=== PATIENT | female | born 1950 | race Caucasian/White ===

== ENCOUNTER 2019-08-22 10:44 | Outpatient (CLI) | payer MEDICARE, SELFPAY ==
--- NOTE | 2019-08-22 10:57 | XR_ITS ---
WS: [id number] LUMBAR SPINE TECHNIQUE: 3 views of the lumbar spine CLINICAL INFORMATION: BACK PAIN, LUMBAR WITH RADICULOPATHY COMPARISON: None. FINDINGS: Mild lumbar curve convex right. Osteopenia. Five [id number]-[id number]-[id number] lumbar vertebral bodies. Disc space narrowing worse at L4-5 with endplate sclero sis. Moderate facet arthropathy L5-S1. Trace anterolisthesis L5 on S1 measuring 3.4 mm. Suggestion of bilateral spondylolysis. Bony foraminal narrowing L5-S1. No acute appearing compression fractures. XR/XR lumbar spine 2-3V* [id number] IMPRESSION: 1. Mild lumbar curve convex right. 2. Disc space narrowing worse at L4-5 with loss of disc space height and endpl ate sclerosis. 3. Moderate facet arthropathy L5-S1 with bony foraminal narrowing and anteroli sthesis measuring 3.4 mm. Suggestion of L5 spondylolysis.
== END 2019-08-22 10:45 | disposition home or self-care (01) ==
LOC: RADWPI 10:52
PROVIDERS: Family Provider Electrodiagnostic Medicine; PCP Electrodiagnostic Medicine; Visit Provider Electrodiagnostic Medicine
DX: M54.9 Dorsalgia, unspecified (principal); M54.16 Radiculopathy, lumbar region; M47.817 Spondylosis without myelopathy or radiculopathy, lumbosacral region
CPT/HCPCS: 72100

== ENCOUNTER 2019-09-03 10:37 | Outpatient (CLI) | payer MEDICARE, SELFPAY ==
--- NOTE | 2019-09-03 10:43 | MR_ITS ---
WS: [id number] MRI LUMBAR SPINE NONCONTRAST HISTORY: Neuropathy, lumbar BACK PAIN W/RADICULOPATHY/ACUTE LOW BACK P COMPARISON: None available. TECHNIQUE: Sagittal and axial multisequence imaging is submitted. Mild straightening of the normal lumbar lordosis. Moderate to severe disc space narrowing at L4-5. No marrow edema or fracture. Conus terminates normally at L1. Mild enlargement of the liver. L1-L2: Mild facet disease and ligamentum flavum hypertrophy. No stenosis. L2-L3: Diffuse annular disc bulging with moderate ligamentum flavum and facet arthritis. Increase flu id in the facet joints. Mild central and subarticular recess stenosis. L3-L4: Diffuse annular disc bulging with a moderate central disc protrusion. There is marked ligament um flavum hypertrophy and facet arthritis. Fluid in the facet joints. There is an osteophyte encroach ing into the central thecal sac from the RIGHT facet joint. Central to RIGHT paracentral and subartic ular disc osteophyte complex. Combination of findings is causing significant central and RIGHT subart icular recess stenosis. L4-L5: Mild annular disc bulging and facet arthritis. Mild bilateral foraminal narrowing. L5-S1: No stenosis. Nerve roots are becoming clumped within the thecal sac below the L3-4 disc level. 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 Retroperitoneal well-rounded nodule measures 2.3 cm is probably an aortocaval lymph node. May be a cy stic nodule as it is very high signal on the T2 sequence. MR/MR lumbar spine wo con* [id number] IMPRESSION: 1. Severe central, RIGHT subarticular recess and proximal foraminal stenosis a t L3-4 due to combination of disc disease, osteophytes, facet arthritis and lig amentum flavum disease. Significant deformity upon the thecal sac, greatest inv olving the RIGHT thecal sac and foramen. Marked encroachment upon the RIGHT L4 nerve root. 2. Nerve roots below the L3-4 disc are becoming clumped within the thecal sac. 3. Mild bilateral foraminal narrowing at L4-5. 4. Mild central and subarticular recess stenosis at L2-3. 5. 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 Cystic lymph nodes or lymphangioma within the differential. Recommend follow-up CT abdomen and pelvis with IV and oral contrast.
== END 2019-09-03 10:38 | disposition home or self-care (01) ==
LOC: RADSHAW 10:42
PROVIDERS: PCP Electrodiagnostic Medicine; Visit Provider Electrodiagnostic Medicine
DX: G62.9 Polyneuropathy, unspecified (principal); M54.16 Radiculopathy, lumbar region; M54.5 Low back pain; M48.061 Spinal stenosis, lumbar region without neurogenic claudication
CPT/HCPCS: 72148

== ENCOUNTER 2019-09-11 08:54 | Outpatient (CLI) | payer MEDICARE, SELFPAY ==
--- NOTE | 2019-09-11 09:15 | CT_ITS ---
WS: [id number] CT ABDOMEN AND PELVIS WITH CONTRAST HISTORY: NEOPLASM OF UNCERTAIN BEHAVIOR OF LUMBAR VERTEBRAL COLUMN TECHNIQUE: Imaging performed of the abdomen and pelvis with IV contrast. Single phase imaging of the abdomen. Coronal and sagittal reformats are submitted. All CT scans at [facility] use at least one of these dose optimization techniques: automated exposure control; mA and/or kV adjustment per patient size (includes targeted exams where dose is matched to clinical indication); or iterativ e reconstruction. IV CONTRAST: Visipaque 320; 95 mL IV. Oral contrast: Yes. DLP: 1156.01 mGycm COMPARISON: MRI lumbar spine 09/03/2019 Lower thorax: Lung bases are clear. Heart is normal size. Small hiatal hernia. Liver/biliary system: Mild diffuse hepatic steatosis with moderate enlargement of the liver. No mass or bile duct dilatation. Gallbladder: Normal. No gallstones or wall thickening. No pericholecystic fluid. Pancreas: Normal. Spleen: Normal spleen size with granulomata. Adrenal glands: Normal. Right kidney: Normal. Left kidney: Normal size kidney. 1.0 cm cyst from the anterior mid kidney. Aorta: Mild atherosclerosis. Lymphadenopathy: There is a well-circumscribed aortocaval cystic mass measuring 1.5 cm in the infra r enal location. This was seen on the recent MRI. With this well-circumscribed with smooth avalos and no enhancement of any significance. No additional masses are identified. Free fluid: None. GI tract: Unremarkable. Abdominal wall: Unremarkable abdominal wall. No hernia. Pelvis: Urinary bladder is moderately well distended. No free fluid. Uterus and ovaries are normal fo r age. Bones: Advanced degenerative disc disease at L4-5. CT/CT abdomen pelvis w con* [id number] IMPRESSION: 1. Well-circumscribed cystic mass in the aortocaval retroperitoneum measures 1 .5 cm. Favor benign etiology. No prior studies to confirm long-term stability. Favor lymphocele or lymphangioma as an etiology. Less likely cystic lymph node. Stability will need to be documented. Recommend follow-up CT abdomen and pelvi s in 3 months. 2. Moderate hepatic steatosis and hepatomegaly.
[2019-09-11] MEDS: iohexol 300 mg/mL 50 mL Btl PO (09:19)
[2019-09-11 11:28] LABS: Blood Urea Nitrogen 11 mg/dL (8-23)
[2019-09-11 11:29] LABS: Glomerular Filtration Rate 34.5 mL/min (90-130)
[2019-09-11] MEDS: iodixanol 320 mg/mL 100mL Btl IV (11:35)
== END 2019-09-11 08:55 | disposition home or self-care (01) ==
LOC: RADWPI 08:57
PROVIDERS: PCP Electrodiagnostic Medicine; Visit Provider Electrodiagnostic Medicine
DX: D48.0 Neoplasm of uncertain behavior of bone and articular cartilage (principal); K76.0 Fatty (change of) liver, not elsewhere classified; R16.0 Hepatomegaly, not elsewhere classified
CPT/HCPCS: 74177; 82565; 84520; Q9967

== ENCOUNTER 2020-01-15 09:19 | Outpatient (CLI) | payer MEDICARE, SELFPAY ==
[2020-01-15] MEDS: iohexol 300 mg/mL 50 mL Btl PO (09:26)
[2020-01-15 10:56] LABS: Blood Urea Nitrogen 12 mg/dL (8-23); Glomerular Filtration Rate 37.4 mL/min (90-130)
--- NOTE | 2020-01-15 11:00 | CT_ITS ---
WS: [id number] CT scan of the abdomen and pelvis with Oral and IV contrast. Additional two-dimensional coronal and s agittal reconstruction was performed. 01/15/2020 Clinical Data: lymphatic cyst and edema Comparison: CT abdomen and pelvis, 09/11/2019. DLP: 1115.[address] scans at [facility] use at least one of these dose optimization techniques: automat ed exposure control; mA and/or kV adjustment per patient size (includes targeted exams where dose is matched to clinical indication); or iterative reconstruction. Findings: The 1.5 cm cyst in the retroperitoneal region between the inferior vena cava and abdominal aorta seen best on axial image 28 of 92 has not changed in size or shape. Again this may represent a small lymp hocele or lymphatic cyst. The lower lungs show no nodules, masses or effusions. There is a small hiatal hernia. The gallbladder, spleen, adrenal glands and pancreas are normal. The liver shows fatty infiltration. The kidneys show equal bilateral contrast excretion with with a small left renal cortical cyst. No hy dronephrosis, masses, renal or ureteral calculi are seen.. The abdominal aorta is normal in size with minimal calcification in the wall.. No appendicitis or diverticulitis is seen. Oral contrast is in the stomach, small bowel and colon and there is no bowel dilatation. No abscess, adenopathy, ascites, mass, obstruction or free air is seen . The bladder is unremarkable. The uterus is normal. No inguinal hernia is seen. There is a posterior lumbar fusion at L3-L4. There is an artificial disc at L3-L4. Disc degeneration at L4-L5 is present. CT/CT abdomen pelvis w con* [id number] Impression: 1. Small lymphocele or lymphatic cyst seen best on axial image 28 and 92 and najera s not changed in size or configuration. 2. No additional CT abdomen scans are recommended.
[2020-01-15] MEDS: iodixanol 320 mg/mL 100mL Btl IV (11:07)
== END 2020-01-15 09:20 | disposition home or self-care (01) ==
LOC: RADWPI 09:23
PROVIDERS: PCP Electrodiagnostic Medicine; Visit Provider Surgery
DX: I89.0 Lymphedema, not elsewhere classified (principal); R60.0 Localized edema
CPT/HCPCS: 74177; 82565; 84520; Q9967

== ENCOUNTER 2021-04-21 15:26 | Outpatient (CLI) | payer MEDICARE, SELFPAY ==
--- NOTE | 2021-04-21 15:34 | MM_ITS ---
WS: [id number] BILATERAL DIGITAL SCREENING MAMMOGRAPHY WITH CAD CLINICAL INFORMATION: SCREENING HISTORY: Screening mammogram. No current complaints. COMPARISON: None. TECHNIQUE: Bilateral CC and MLO views. FINDINGS: Scattered fibroglandular densities bilaterally. Incidental punctate calcifications. Indeterminate clu stered calcifications central inner LEFT breast. Recommend spot magnification views in further evalua tion. RIGHT breast is unremarkable. MM/[place] [id number] IMPRESSION: BI-RADS: 0-Incomplete: Need additional imaging evaluation FOLLOW UP: Need Additional Imaging Recommend LEFT breast diagnostic mammography with spot magnification views of t he clustered calcifications.
== END 2021-04-21 15:27 | disposition home or self-care (01) ==
PROVIDERS: PCP Electrodiagnostic Medicine; Visit Provider Electrodiagnostic Medicine
DX: Z12.31 Encounter for screening mammogram for malignant neoplasm of breast (principal)
CPT/HCPCS: 77067

== ENCOUNTER 2021-05-12 13:43 | Outpatient (CLI) | payer MEDICARE, SELFPAY ==
--- NOTE | 2021-05-12 13:57 | MM_ITS ---
WS: [id number] LEFT DIGITAL MAMMOGRAPHY WITH CAD CLINICAL INFORMATION: CALCS COMPARISON: April 21, 2021 TECHNIQUE: 3 views of the left breast were obtained. FINDINGS: Scattered fibroglandular densities of the left breast. Spot magnification views inner quadrant LEFT b reast. Spot magnification views demonstrates cluster of calcifications unchanged in appearance. These are somewhat coarse but heterogeneous and nonspecific. Recommend further evaluation with stereotacti c guided biopsy. MM/[place] [id number] IMPRESSION: BI-RADS: 4-Suspicious Finding-Biopsy Should Be Considered FOLLOW UP: Stereotactic Biopsy Recommended
== END 2021-05-12 13:44 | disposition home or self-care (01) ==
PROVIDERS: PCP Electrodiagnostic Medicine; Visit Provider Electrodiagnostic Medicine
DX: R92.1 Mammographic calcification found on diagnostic imaging of breast (principal)
CPT/HCPCS: 77065

== ENCOUNTER 2021-07-01 13:59 | Outpatient (CLI) | payer MEDICARE, SELFPAY ==
--- NOTE | 2021-07-01 14:15 | MM_ITS ---
WS: [id number] STEREOTACTIC LEFT BREAST BIOPSY WITH VACUUM ASSISTANCE. History: Heterogeneous LEFT breast calcifications. Biopsy recommended for suspicious calcifications. Procedure, risks, and complications were discussed the patient who agreed to proceed. Prior imaging w as reviewed. Cluster of calcifications within the left breast are localized. Stereotactic imaging was performed. P atient was prepped and draped in usual sterile fashion. After 1% lidocaine, calcifications were targe monica stereotactically in the LEFT breast. Small incision was made. Needle advanced into the cluster of calcifications LEFT breast with imaging demonstrating appropriate position relative to the calcifica tions. Multiple vacuum-assisted core biopsies were obtained. Postprocedure imaging demonstrates calci fications within the biopsy specimen. The biopsy cavity was lavaged. Titanium clip was placed at the biopsy site. Postprocedure imaging dem onstrates clip in good position on the cc view and migrated inferior to the biopsy cavity on the ML v iew after compression release. No immediate complications. MM/[place] [id number] IMPRESSION: 1. Uncomplicated vacuum-assisted stereotactic biopsy of calcifications in the LEFT breast. Pathology: A. Breast, left, calcifications , stereotactic biopsy: - Benign breast tissue with focal usual ductal hyperplasia. - Florid microcalcifications identified. - No malignancy identified. Recommend 6 month diagnostic mammographic follow-up postbiopsy
--- NOTE | 2021-07-01 14:15 | MM_ITS ---
WS: [id number] STEREOTACTIC LEFT BREAST BIOPSY WITH VACUUM ASSISTANCE. History: Heterogeneous LEFT breast calcifications. Biopsy recommended for suspicious calcifications. Procedure, risks, and complications were discussed the patient who agreed to proceed. Prior imaging w as reviewed. Cluster of calcifications within the left breast are localized. Stereotactic imaging was performed. P atient was prepped and draped in usual sterile fashion. After 1% lidocaine, calcifications were targe monica stereotactically in the LEFT breast. Small incision was made. Needle advanced into the cluster of calcifications LEFT breast with imaging demonstrating appropriate position relative to the calcifica tions. Multiple vacuum-assisted core biopsies were obtained. Postprocedure imaging demonstrates calci fications within the biopsy specimen. The biopsy cavity was lavaged. Titanium clip was placed at the biopsy site. Postprocedure imaging dem onstrates clip in good position on the cc view and migrated inferior to the biopsy cavity on the ML v iew after compression release. No immediate complications. MM/MM surgical specimen LT IMPRESSION: 1. Uncomplicated vacuum-assisted stereotactic biopsy of calcifications in the LEFT breast. Pathology: A. Breast, left, calcifications , stereotactic biopsy: - Benign breast tissue with focal usual ductal hyperplasia. - Florid microcalcifications identified. - No malignancy identified. Recommend 6 month diagnostic mammographic follow-up postbiopsy
--- NOTE | 2021-07-01 14:15 | MM_ITS ---
WS: [id number] STEREOTACTIC LEFT BREAST BIOPSY WITH VACUUM ASSISTANCE. History: Heterogeneous LEFT breast calcifications. Biopsy recommended for suspicious calcifications. Procedure, risks, and complications were discussed the patient who agreed to proceed. Prior imaging w as reviewed. Cluster of calcifications within the left breast are localized. Stereotactic imaging was performed. P atient was prepped and draped in usual sterile fashion. After 1% lidocaine, calcifications were targe monica stereotactically in the LEFT breast. Small incision was made. Needle advanced into the cluster of calcifications LEFT breast with imaging demonstrating appropriate position relative to the calcifica tions. Multiple vacuum-assisted core biopsies were obtained. Postprocedure imaging demonstrates calci fications within the biopsy specimen. The biopsy cavity was lavaged. Titanium clip was placed at the biopsy site. Postprocedure imaging dem onstrates clip in good position on the cc view and migrated inferior to the biopsy cavity on the ML v iew after compression release. No immediate complications. MM/MM biopsy LT vac assist [id number] IMPRESSION: 1. Uncomplicated vacuum-assisted stereotactic biopsy of calcifications in the LEFT breast. Pathology: A. Breast, left, calcifications , stereotactic biopsy: - Benign breast tissue with focal usual ductal hyperplasia. - Florid microcalcifications identified. - No malignancy identified. Recommend 6 month diagnostic mammographic follow-up postbiopsy
[2021-07-01 15:01] LABS: INR 0.96 (0.8-1.2)
== END 2021-07-01 14:00 | disposition home or self-care (01) ==
PROVIDERS: PCP Electrodiagnostic Medicine; Visit Provider Electrodiagnostic Medicine
DX: R92.1 Mammographic calcification found on diagnostic imaging of breast (principal)
CPT/HCPCS: 19081; 77065; 85610; 88305

== ENCOUNTER 2022-06-11 07:29 | Outpatient (CLI) | payer MEDICARE, SELFPAY ==
--- NOTE | 2022-06-11 07:46 | ECG_ITS ---
[facility] Test Date: 2022-06-11 Pat Name: Cheri Nj Department: Room: Gender: Female [employer] Structural Engineer: : 1950 Requested By: Cliff Fung Order Number: [id number] Santoro MD: Aurelio Ball M.D. Interpretive Statements NAME OF STUDY: LEXISCAN SESTAMIBI STRESS TEST INDICATION: [Chest Pain, ] Procedure: At the baseline, the blood pressure was 132/63 mmHg with a heart rate of 59 bpm. The electrocardiogram showed normal sinus rhythm, normal axis with normal ST and T's. The Lexiscan was infused over a period of 20 seconds. A total of 0.4 mg of Lexiscan was infused. The stress phase was continued for a total of 5 minutes. Heart rate was at the end of stress phase was 69 bpm and a blood pressure of 111/71 mmHg. The EKG at the peak infusion revealed normal sinus rhythm with no significant ST-T wave changes. Sestamibi was injected 20 seconds after the Lexiscan infusion. Blood pressure at the end of recovery phase was 126/67 mmHg with a heart rate of 73bpm. Conclusion: 1. Normal EKG response to Lexiscan infusion 2. No Lexiscan induced chest pain or cardiac arrhythmia. 3. Normal blood pressure and heart rate response. 4. Sestamibi/sestamibi perfusion scan pending; see separate report. Electronically Signed On 06-20-2022 14:43:44 CDT by Aurelio Ball M.D. [id number]
--- NOTE | 2022-06-11 07:47 | NMCV_ITS ---
NM jethro perf SPECT r/s* [id number] Cheri Nj Age: 72 Gender: F : 1950 Exam Date: 06/11/2022 08:48 Ordering Phys: Cliff Fung (ER USE) DO Technologist: DAVID Salas Exam Location: [facility] Indications: CHEST PAIN STRESS TEST Please see separate stress test report in [facility] for full findings IMAGE PROTOCOL Rest/Stress 1 Lexiscan Day Radiopharmaceutical Dose (mCi) Administration Site Administered by Rest: Tc-99m 10.7 IV DAVID Meehan Sestamibi Stress:Tc-99m 32.1 IV DAVID Meehan Sestamibi Rest: 11-Jun-2022 60 Discovery 630 Stress: 11-Jun-2022 30 Discovery 630 0.4mg Lexiscan. Images obtained in supine and prone position. SPECT RESULTS Technical Quality: Excellent Raw Data Analysis: Normal Image Corrections: No attenuation or motion correction applied Summed Stress Score: 0 Summed Rest Score: 3 Summed Difference Score: 0 PERFUSION FINDINGS SPECT images demonstrate homogeneous tracer distribution throughout the myocardium. FUNCTIONAL RESULTS (calculated via Gated SPECT) Stress Image LV EF (%): 78 Stress EDV (mL):87 TID: 1.09 Stress ESV (mL):19 FUNCTIONAL FINDINGS: There is normal left ventricular systolic function. IMPRESSIONS 1. Normal myocardial perfusion imaging with no evidence of ischemia 2. LV systolic function is normal Aurelio Ball MD (Electronically Signed) Final Date: 11 June 2022 16:27 S
[2022-06-11 07:48] VITALS: BMI 39.5
[2022-06-11] MEDS: regadenoson 0.4 Mg/5 ml Syringe IVP (09:41)
[2022-06-11 09:59] VITALS: BP 126/67; PULSE 73
== END 2022-06-11 07:30 | disposition home or self-care (01) ==
PROVIDERS: PCP Electrodiagnostic Medicine; Visit Provider Electrodiagnostic Medicine
DX: R07.9 Chest pain, unspecified (principal)
CPT/HCPCS: 36415; 78452; 93017; 96374; A9500; J2785

== ENCOUNTER → 2022-10-06 11:36 | Outpatient (BNVA) | payer MEDICARE, SELFPAY | PROVIDERS: PCP Electrodiagnostic Medicine; Visit Provider Internal Medicine Cardiovascular Disease | DX: I10 Essential (primary) hypertension (principal) | CPT/HCPCS: 93005; 99204 ==

== ENCOUNTER 2022-10-18 08:52 | Outpatient (CLI) | payer MEDICARE, SELFPAY ==
--- NOTE | 2022-10-18 09:15 | USCV_ITS ---
Cheri Nj Age: 72 Gender: F : 1950 Exam Date: 10/18/2022 09:27 Ordering Phys: Kathy Steen MD ([email or web address]) Technologist: Weston Golden [place] [facility] [place] Indication: shortness of breath BP: 142 / 80 HR: 61 Rhythm: Sinus Technical Quality: Adequate MEASUREMENTS (Male / Female) Normal Values 2D ECHO LVOT Diameter 2.1 cm LV Ejection Fraction MOD 2C 65.9 % LV Ejection Fraction 2C AL 64.2 % LA Diameter 3.1 cm LA Width 2.8 cm LA Height 4.2 cm RA Width 2.7 cm RA Height 3.8 cm Aorta at Sinotubular Diameter 2.5 cm IVC Diameter 1.2 cm M-MODE Aortic Annulus Diameter 3.1 cm LA Ao Ratio MM 1.0 MV E Point Septal Separation 0.7 cm DOPPLER AV Peak Velocity 164.3 cm/s LVOT Peak Velocity 133.0 cm/s AV Area Cont Eq vti 2.7 cm squared AV Area Cont Eq pk 2.7 cm squared MV Peak Velocity 91.0 cm/s MV Area PHT 3.7 cm squared Mitral E to A Ratio 0.7 MV E' Velocity 30.0 cm/s Mitral E to MV E' Ratio 5.4 Mitral E to LV E' Lateral Ratio 5.2 Mitral E to LV E' Septal Ratio 5.7 TR Peak Velocity 198.0 cm/s TR Peak Gradient 15.7 mmHg TR Mean Velocity 149.5 cm/s TR Mean Gradient 9.4 mmHg TR Velocity Time Integral 40.5 cm Right Atrial Pressure 3.0 mmHg Pulmonary Artery Systolic Pressu 18.7 mmHg PV Peak Velocity 97.0 cm/s RV Acceleration Time 0.1 s RV Ejection Time 0.3 s RV AcT/ET 0.4 FINDINGS Left Ventricle Normal left ventricular size, systolic function and wall thickness, with no regional wall motion abnormalities. Left ventricular ejection fraction is estimated at 67 %. Abnormal relaxation filling pattern on mitral inflow. Right Ventricle Normal right ventricular size and systolic function. RVSP could not be calculated due to incomplete tricuspid regurgitation velocity profile. Right Atrium Normal right atrial size. Left Atrium Normal left atrial size. Mitral Valve Structurally normal mitral valve. No mitral valve stenosis. No mitral valve regurgitation. Aortic Valve Aortic valve not well visualized. No aortic valve stenosis. Trace to mild aortic valve regurgitation. Tricuspid Valve Structurally normal tricuspid valve. No tricuspid valve stenosis. Trace tricuspid valve regurgitation. Pulmonic Valve Pulmonic valve not well visualized. No pulmonary valve stenosis. Pericardium No pericardial effusion. Aorta Normal size aortic root and proximal ascending aorta. IVC Normal IVC dimension with >50% respiratory change of the inferior vena cava. CONCLUSIONS 1. Normal left ventricular size, systolic function and wall thickness, with no regional wall motion abnormalities. Left ventricular ejection fraction is estimated at 67 %. Abnormal relaxation filling pattern on mitral inflow. 2. Trace to mild aortic valve regurgitation. 3. No prior similar studies to compare. Kathy Steen MD (Electronically Signed) Final Date: 22 October 2022 13:51 S
== END 2022-10-18 08:53 | disposition home or self-care (01) ==
PROVIDERS: PCP Electrodiagnostic Medicine; Visit Provider Internal Medicine Cardiovascular Disease
DX: R06.02 Shortness of breath (principal); I35.1 Nonrheumatic aortic (valve) insufficiency; R93.1 Abnormal findings on diagnostic imaging of heart and coronary circulation
CPT/HCPCS: 93306

== ENCOUNTER 2022-11-02 20:00 | Outpatient (CLI) | payer MEDICARE, SELFPAY | END 2022-11-02 20:01 | disposition home or self-care (01) | LOC: SLEEP 11-03 05:38 | PROVIDERS: PCP Electrodiagnostic Medicine; Visit Provider Internal Medicine Cardiovascular Disease | DX: G47.30 Sleep apnea, unspecified (principal) | CPT/HCPCS: 95811 ==

== ENCOUNTER 2023-07-13 15:36 | Observation (INO) | payer MEDICARE, SELFPAY ==
[2023-07-13] VITALS (24 sets, daily range): BP systolic 132–176; BP diastolic 65–91; PULSE 61–148; RESP 7–24; TEMP 36.4–36.5; O2SAT 94–100; BMI 38.9
--- NOTE | 2023-07-13 16:13 | ECG_ITS ---
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 Measurements Intervals [place] Rate: 71 P: 61 KS: 224 QRS: -12 QRSD: 98 T: 59 QT: 328 QTc: 357 Interpretive Statements SINUS RHYTHM WITH FIRST DEGREE AV BLOCK LOW QRS VOLTAGE IN PRECORDIAL LEADS [QRS DEFLECTION < 1.0 mV IN CHEST LEADS] PATTERN CONSISTENT WITH PULMONARY DISEASE Compared to ECG 10/06/2022 11:42:38 Low QRS voltage now present Sinus bradycardia no longer present Electronically Signed On 07-13-2023 16:47:57 CDT by Aurelio Ball M.D. [email or web address]
[2023-07-13 16:55] LABS: Basophils % 0.6 %; Eosinophils # 0.1 10^3/uL (0.0-0.8); Eosinophils % 1.3 %; Hematocrit 39.5 % (36-47); Lymphocytes # 0.5 10^3/uL (0.8-4.8); Lymphocytes % 6.5 %; Mean Corpuscular HGB Conc 31.9 g/dL (30-55); Mean Corpuscular Hemoglobin 26.4 pg (27-33); Mean Corpuscular Volume 82.8 fl (85-98); Mean Platelet Volume 9.5 fL (7.4-10.4); Monocytes # 0.2 10^3/uL (0.2-0.9); Monocytes % 3.3 %; Neutrophils % 87.7 %; Nucleated Red Blood Cells % 0 %; Platelet Count 325 10^3/cmm (157-399); Red Blood Count 4.77 10^6/uL (3.85-5.65); Red Cell Distribution Width 14.8 % (12.1-15.1); White Blood Count 7.18 10^3/uL (3.29-11.43)
[2023-07-13 17:16] LABS: Alanine Aminotransferase 23 U/L (0-33); Albumin Level 4.3 g/dL (3.5-5.2); Alkaline Phosphatase 126 U/L (35-105); Aspartate Amino Transferase 21 U/L (0-32); Blood Urea Nitrogen 39 mg/dL (8-23); Calcium 9.8 mg/dL (8.5-10.5); Carbon Dioxide 17 mmol/L (22-29); Chloride 109 mmol/L (98-107); Creatinine Clr Calc Pharmacy 33.9601; Globulin 3.3 g/dL (1.3-4.6); Glucose 93 mg/dL (65-115); Osmolality Calculated 291 mOsm/kg (285-295); Sodium 136 mmol/L (136-145); Total Bilirubin 0.2 mg/dL (0.15-1.2); Total Protein 7.6 g/dL (6.6-8.7)
--- NOTE | 2023-07-13 17:31 | ED_ITS ---
Documented by User: YULISA Carias 07/13/23 18:34 HPI - Recheck/Abnormal Lab/Rx 2 General: Chief Complaint: Recheck/Abnormal Lab/Rx Stated Complaint: sent by [place] high potassium Time Seen by Provider: 07/13/23 17:19 Source: patient Mode of arrival: ambulatory Limitations: no limitations History of Present Illness: Patient is a 73-year-old female who presents to the emergency department due to abnormal lab value obtained at primary care's office. Patient was sent over by Dr. Fung due to and a critically high potassium, however patient denies any symptoms at this time and states she thinks the lab was hemolyzed. She has never had issues with potassium. She is not having any nausea or vomiting, chest pains, palpitation, abdominal pain, or other symptoms. She does note that she just started doxycycline today for pneumonia, as well as prednisone. She states that she has a history of high blood pressure and hypothyroid, no other major cardiac history. MD complaint: abnormal lab PFSH ED 2 PFSH: Medical History Psoriasis GERD (gastroesophageal reflux disease) Fibromyalgia STAN (obstructive sleep apnea) RLS (restless legs syndrome) Hypothyroidism Hypertension Surgical History S/P laminectomy H/O colonoscopy 2011 H/O lateral meniscus repair of right knee H/O lateral meniscus repair of left knee H/O tubal ligation Family History Brother Cancer renal Hypertension Mother Hypertension Stroke Hypothyroidism Sister Hypertension Thyroid disease x4 Social History Smoking and tobacco/nicotine status: never used tobacco/nicotine Substance/Drug Use: never Course 2 Vital Signs: Vital signs: Vital Signs Temperature 97.6 F 07/14/23 04:45 Pulse Rate 62 07/14/23 05:55 Respiratory Rate 19 H 07/14/23 05:00 Blood Pressure 137/72 07/14/23 05:00 Pulse Oximetry 97 07/14/23 05:00 Oxygen Delivery Me thod Room Air 07/14/23 05:00 MDM - Recheck/Abnormal Lab/Rx Medical Decision Making This patient was sent over her primary care for evaluation of elevated potassium. Potassium here found to be significantly elevated 8.0. History of high blood pressure and hypothyroid, recently started on doxycycline for lung infection. On spironolactone for blood pressure control. Spoke with Dr. Juan, hospitalist, who accepts patient to ICU. Patient started on calcium gluconate, albuterol, D50 and insulin. Dr. Juan recommended Kayexalate. Telemetry nephrology consulted, recommending 80 of Lasix and 2 A of bicarb. Also recommended placing Palm catheter to monitor output closely. Labs also revealed evidence of acute kidney injury. EKG did not show any significant abnormal findings related to the high potassium. Patient is asymptomatic at this time, and agrees with plan for admission. All other questions and concerns addressed. Lab Data I reviewed the patient's lab results. 07/14/23 04:34 07/14/23 04:34 Laboratory Results WBC 7.18 10^3/uL (3.29-11.43) 07/13/23 16:48 RBC 4.77 10^6/uL (3.85-5.65) 07/13/23 16:48 Hgb 12.60 g/dL (11.27-16.99) 07/13/23 16:48 Hct 39.5 % (36-47) 07/13/23 16:48 MCV 82.8 fl (85-98) L 07/13/23 16:48 MCH 26.4 pg (27-33) L 07/13/23 16:48 MCHC 31.9 g/dL (30-55) 07/13/23 16:48 RDW 14.8 % (12.1-15.1) 07/13/23 16:48 Plt Count 325 10^3/cmm (157-399) 07/13/23 16:48 MPV 9.5 fL (7.4-10.4) 07/13/23 16:48 Neut % (Auto) 87.7 % 07/13/23 16:48 Lymph % (Auto) 6.5 % 07/13/23 16:48 [place] % (Auto) 3.3 % 07/13/23 16:48 Eos % (Auto) 1.3 % 07/13/23 16:48 Baso % (Auto) 0.6 % 07/13/23 16:48 Neut # (Auto) 6.30 10^3/uL (1.8-7.7) 07/13/23 16:48 Lymph # (Auto) 0.5 10^3/uL (0.8-4.8) L 07/13/23 16:48 [place] # (Auto) 0.2 10^3/uL (0.2-0.9) 07/13/23 16:48 Eos # (Auto) 0.1 10^3/uL (0.0-0.8) 07/13/23 16:48 Baso # (Auto) 0.0 10^3/uL (0.0-0.1) 07/13/23 16:48 Nucleated RBC % (auto) 0 % 07/13/23 16:48 Nucleated RBCs # 0.0 /100WBC 07/13/23 16:48 Sodium 136 mmol/L (136-145) 07/13/23 16:48 Potassium 8.2 mmol/L (3.5-5.1) H* 07/13/23 17:55 Chloride 109 mmol/L (98-107) H 07/13/23 16:48 Carbon Dioxide 17 mmol/L (22-29) L 07/13/23 16:48 Anion Gap 18.0 (5-19) 07/13/23 16:48 BUN 39 mg/dL (8-23) H 07/13/23 16:48 Creatinine 2.0 mg/dL (0.5-0.9) H 07/13/23 16:48 GFR Calculation Not Reportable 07/13/23 16:48 Glucose 93 mg/dL (65-115) 07/13/23 16:48 Calculated Osmolality 291 mOsm/kg (285-295) 07/13/23 16:48 Calcium 9.8 mg/dL (8.5-10.5) 07/13/23 16:48 Magnesium 1.5 mg/dL (1.7-2.3) L 07/13/23 17:55 Total Bilirubin 0.2 mg/dL (0.15-1.2) 07/13/23 16:48 AST 21 U/L (0-32) 07/13/23 16:48 ALT 23 U/L (0-33) 07/13/23 16:48 Alkaline Phosphatase 126 U/L (35-105) H 07/13/23 16:48 Total Protein 7.6 g/dL (6.6-8.7) 07/13/23 16:48 Albumin 4.3 g/dL (3.5-5.2) 07/13/23 16:48 Globulin 3.3 g/dL (1.3-4.6) 07/13/23 16:48 No radiology studies performed this visit Discharge Plan Discharge Patient Disposition: Admitted As Inpatient Admit Provider: Nilson Kumari Clinical Impression: Hyperkalemia, JOBY (acute kidney injury) Condition: Stable Coding Level of Care Code ED Ash Collector for Chg Fwd Documented by User: Venkat Sanchez DO 07/14/23 07:25 HPI - Recheck/Abnormal Lab/Rx 2 General: Chief Complaint: Recheck/Abnormal Lab/Rx Stated Complaint: sent by high sánchez Fung Time Seen by Provider: 07/13/23 17:19 [facility] ED 2 PFSH: Medical History Psoriasis GERD (gastroesophageal reflux disease) Fibromyalgia STAN (obstructive sleep apnea) RLS (restless legs syndrome) Hypothyroidism Hypertension Surgical History S/P laminectomy H/O colonoscopy 2011 H/O lateral meniscus repair of right knee H/O lateral meniscus repair of left knee H/O tubal ligation Family History Brother Cancer renal Hypertension Mother Hypertension Stroke Hypothyroidism Sister Hypertension Thyroid disease x4 Social History Smoking and tobacco/nicotine status: never used tobacco/nicotine Substance/Drug Use: never Course 2 Vital Signs: Vital signs: Vital Signs Temperature 97.6 F 07/14/23 04:45 Pulse Rate 62 07/14/23 05:55 Respiratory Rate 19 H 07/14/23 05:00 Blood Pressure 137/72 07/14/23 05:00 Pulse Oximetry 97 07/14/23 05:00 Oxygen Delivery Me thod Room Air 07/14/23 05:00 MDM - Recheck/Abnormal Lab/Rx Medical Decision Making This patient was sent over her primary care for evaluation of elevated potassium. Potassium here found to be significantly elevated 8.0. History of high blood pressure and hypothyroid, recently started on doxycycline for lung infection. On spironolactone for blood pressure control. Spoke with Dr. Juan, hospitalist, who accepts patient to ICU. Patient started on calcium gluconate, albuterol, D50 and insulin. Dr. Juan recommended Kayexalate. Telemetry nephrology consulted, recommending 80 of Lasix and 2 A of bicarb. Also recommended placing Palm catheter to monitor output closely. Labs also revealed evidence of acute kidney injury. EKG did not show any significant abnormal findings related to the high potassium. Patient is asymptomatic at this time, and agrees with plan for admission. All other questions and concerns addressed. Chart reviewed Lab Data 07/14/23 04:34 07/14/23 04:34 Laboratory Results WBC 7.18 10^3/uL (3.29-11.43) 07/13/23 16:48 RBC 4.77 10^6/uL (3.85-5.65) 07/13/23 16:48 Hgb 12.60 g/dL (11.27-16.99) 07/13/23 16:48 Hct 39.5 % (36-47) 07/13/23 16:48 MCV 82.8 fl (85-98) L 07/13/23 16:48 MCH 26.4 pg (27-33) L 07/13/23 16:48 MCHC 31.9 g/dL (30-55) 07/13/23 16:48 RDW 14.8 % (12.1-15.1) 07/13/23 16:48 Plt Count 325 10^3/cmm (157-399) 07/13/23 16:48 MPV 9.5 fL (7.4-10.4) 07/13/23 16:48 Neut % (Auto) 87.7 % 07/13/23 16:48 Lymph % (Auto) 6.5 % 07/13/23 16:48 [place] % (Auto) 3.3 % 07/13/23 16:48 Eos % (Auto) 1.3 % 07/13/23 16:48 Baso % (Auto) 0.6 % 07/13/23 16:48 Neut # (Auto) 6.30 10^3/uL (1.8-7.7) 07/13/23 16:48 Lymph # (Auto) 0.5 10^3/uL (0.8-4.8) L 07/13/23 16:48 [place] # (Auto) 0.2 10^3/uL (0.2-0.9) 07/13/23 16:48 Eos # (Auto) 0.1 10^3/uL (0.0-0.8) 07/13/23 16:48 Baso # (Auto) 0.0 10^3/uL (0.0-0.1) 07/13/23 16:48 Nucleated RBC % (auto) 0 % 07/13/23 16:48 Nucleated RBCs # 0.0 /100WBC 07/13/23 16:48 Sodium 136 mmol/L (136-145) 07/13/23 16:48 Potassium 8.2 mmol/L (3.5-5.1) H* 07/13/23 17:55 Chloride 109 mmol/L (98-107) H 07/13/23 16:48 Carbon Dioxide 17 mmol/L (22-29) L 07/13/23 16:48 Anion Gap 18.0 (5-19) 07/13/23 16:48 BUN 39 mg/dL (8-23) H 07/13/23 16:48 Creatinine 2.0 mg/dL (0.5-0.9) H 07/13/23 16:48 GFR Calculation Not Reportable 07/13/23 16:48 Glucose 93 mg/dL (65-115) 07/13/23 16:48 Calculated Osmolality 291 mOsm/kg (285-295) 07/13/23 16:48 Calcium 9.8 mg/dL (8.5-10.5) 07/13/23 16:48 Magnesium 1.5 mg/dL (1.7-2.3) L 07/13/23 17:55 Total Bilirubin 0.2 mg/dL (0.15-1.2) 07/13/23 16:48 AST 21 U/L (0-32) 07/13/23 16:48 ALT 23 U/L (0-33) 07/13/23 16:48 Alkaline Phosphatase 126 U/L (35-105) H 07/13/23 16:48 Total Protein 7.6 g/dL (6.6-8.7) 07/13/23 16:48 Albumin 4.3 g/dL (3.5-5.2) 07/13/23 16:48 Globulin 3.3 g/dL (1.3-4.6) 07/13/23 16:48 Discharge Plan Discharge Patient Disposition: Admitted As Inpatient Admit Provider: Nilson Kumari Clinical Impression: Hyperkalemia, JOBY (acute kidney injury) Condition: Stable Coding Level of Care Code ED Ash Collector for Nargis Diaz
[2023-07-13] MEDS: calcium gluconate 0.1 gm/mL 10% SDV 10mL 1 GM IVP (18:08)
[2023-07-13] MEDS: insulin regular-human 100 units/1 mL 10 UNIT IVP (18:09)
[2023-07-13] MEDS: dextrose 5 % 500 ML IV (18:09)
[2023-07-13] MEDS: albuterol 2.5 mg/3 mL Neb INHALATION ×5 (18:10→22:44)
[2023-07-13 18:18] LABS: Magnesium 1.5 mg/dL (1.7-2.3)
[2023-07-13 18:37] LABS: Potassium 8.2 mmol/L (3.5-5.1)
--- NOTE | 2023-07-13 18:45 | P.HP_ITS ---
Providers/Chief Complaint 2 Primary Care Provider: Cliff Fung DO Chief Complaint: sent by [place], high potassium History of Present Illness Cheri Nj is a 73 year old female who was referred from PCP clinic for abnormal labs. Patient is stating that she has been experiencing diarrhea for last 1 week, she was put on doxycycline today for upper respite tract infection she was experiencing cold related symptoms. She has not noticed any fever but endorsing nausea without vomiting. No chest pain shortness of breath or abdominal pain. In the ER she was diagnosed with hyperkalemia she does take 3 nephrotoxic agents that can cause high potassium as well her sample is also hemolyzed. She has been treated with hyperkalemia cocktail No significant EKG changes No active chest pain hemodynamically stable She is hypertensive Review of Systems 2 Const: Denies: fever(s) Eyes: Denies: change in vision ENMT: Denies: throat pain Card: Denies: chest pain Resp: Denies: dyspnea : Denies: flank pain Medications/Allergies Home Medications Medication Instructions Recorded Confirmed Last Taken Type albuterol sulfate 90 mcg/actuation 2 puff inhalation Q6H PRN 09/27/19 06/10/22 Unknown History aerosol inhaler (Ventolin HFA) alprazolam 0.25 mg tablet 0.25 - 0.5 mg PO DAILY 09/27/19 06/10/22 Unknown History calcium carbonate 500 mg-vitamin 1 tab PO DAILY 09/27/19 06/10/22 Unknown History D3 5 mcg (200 unit) tablet (Calcium 500 + D) carvedilol 12.5 mg tablet 12.5 mg PO BID 09/27/19 06/10/22 Unknown History duloxetine 60 mg capsule,delayed 60 mg PO DAILY 09/27/19 06/10/22 Unknown History release (Cymbalta) omeprazole 20 mg capsule,delayed 20 mg PO BID 09/27/19 06/10/22 Unknown History release pramipexole 0.25 mg tablet 0.125 mg PO DAILY 09/27/19 06/10/22 Unknown History tizanidine 4 mg capsule 2 - 8 mg PO TID PRN 09/27/19 06/10/22 Unknown History clobetasol 0.05 % topical cream 1 applic topical .twice weekly #60 06/13/22 06/13/22 Unknown Rx grams amlodipine 10 mg tablet 5 mg PO DIRECTED 10/06/22 Unknown History levothyroxine 150 mcg capsule 175 mcg PO DAILY 10/06/22 Unknown History loratadine 10 mg tablet (Allergy 10 mg PO DAILY 10/06/22 Unknown History Relief (loratadine)) meloxicam 7.5 mg tablet 7.5 mg PO DAILY 10/06/22 Unknown History spironolactone 100 mg tablet 100 mg PO DAILY 10/06/22 Unknown History valsartan 320 mg tablet 320 mg PO DAILY 10/06/22 Unknown History Allergies Allergy/AdvReac Type Severity Reaction Status Date / Time acetaminophen [From Percocet] Allergy ALGY-Rash Verified 06/10/22 12:47 oxycodone [From Percocet] Allergy ALGY-Rash Verified 06/10/22 12:47 PFSH Acute 2 PFSH: Medical History Psoriasis GERD (gastroesophageal reflux disease) Fibromyalgia STAN (obstructive sleep apnea) RLS (restless legs syndrome) Hypothyroidism Hypertension Surgical History S/P laminectomy H/O colonoscopy 2011 H/O lateral meniscus repair of right knee H/O lateral meniscus repair of left knee H/O tubal ligation Family History Brother Cancer renal Hypertension Mother Hypertension Stroke Hypothyroidism Sister Hypertension Thyroid disease x4 Social History Smoking and tobacco/nicotine status: never used tobacco/nicotine Substance/Drug Use: never Vitals/I&O/Wt Last Vital Signs Temp 97.6 F 07/13/23 15:43 Pulse 61 07/13/23 18:15 Resp 16 07/13/23 18:11 BP 176/88 07/13/23 17:45 Pulse Ox 99 07/13/23 18:11 O2 Del Method Room Air 07/13/23 18:11 Weight last 48 hrs Weight 115.666 kg Physical Exam 2 Narrative: Pleasant cooperative female Morbidly obese Hypertensive Currently room air Nonfocal neuroexam Pleasant cooperative No GCS 15 at the bedside Lower extremity no swelling S1, S2 Data 07/13/23 16:48 07/13/23 17:55 A&P Assessment and plan (1) Hypertension: (2) Hypothyroidism: (3) STAN (obstructive sleep apnea): (4) Hyperkalemia: Plan Hyperkalemia Incidental finding No EKG changes Has received calcium gluconate insulin and Kayexalate Will monitor on telemetry Admit to CSU She is hypertensive we will use hydralazine and amlodipine for now with Coreg Discontinue meloxicam spironolactone and valsartan which can cause high potassium Blood sample was hemolyzed as well Get another EKG No active chest pain shortness of breath She is endorsing loose stools for last 1 week Afebrile Full code Cardiac diet DVT prophylaxis: Heparin Acute on chronic kidney disease will hydrate her overnight clinically mild signs of dehydration likely related to diarrhea Hypomagnesemia: Will replenish Repeat BMP at 9:00 I would continue antibiotic doxycycline for upper respiratory infection Attestations 2 Medical Necessity Statement*: Anticipating discharge within 48 hours Diagnoses Hypertension I10 Hypothyroidism E03.9 STAN (obstructive sleep apnea) G47.33 Hyperkalemia E87.5
--- NOTE | 2023-07-13 18:49 | ECG_ITS ---
[facility] Test Date: 2023-07-13 Pat Name: Cheri Nj Department: Room: Gender: Female Circulation Director: : 1950 Requested By: Nilson Kumari Order Number: [id number] Maude MD: Michelle Garcia M.D. Measurements Intervals [place] Rate: 66 P: 71 TN: 250 QRS: -17 QRSD: 97 T: 64 QT: 343 QTc: 361 Interpretive Statements SINUS RHYTHM WITH FIRST DEGREE AV BLOCK Compared to ECG 07/13/2023 15:41:44 No significant changes Electronically Signed On 07-14-2023 22:55:48 CDT by Michelle Garcia M.D. [email or web address] [id number]
[2023-07-13] MEDS: sodium polystyrene sulfonate 15 gm/60 mL Btl PO (18:51)
[2023-07-13] MEDS: FUROsemide 10 mg/mL SDV 10mL 80 MG IVP ×2 (18:52→20:12)
[2023-07-13] MEDS: sodium bicarbonate 8.4% 1 mEq/mL 50mL Syr 100 MEQ IVP ×2 (18:53→20:12)
[2023-07-13] MEDS: sodium bicarbonate 150 MEQ in dextrose 5% 1,000 ML 100 MEQ IV (20:44)
--- NOTE | 2023-07-13 21:54 | PM.CONSULT ---
Providers/Reason For Consult Consulting Physician/Specialty*: DANNY Reason for Consult*: JOBY , HYPERKALEMIA Attending Physician: Nilson Kumari MD Primary Care Provider: Cliff Fung DO History of Present Illness History of Present Illness Cheri Nj is a 73 year old female with past medical history of hypertension, restless leg syndrome, obstructive sleep apnea hypothyroidism was sent to the emergency department by PCP office due to abnormal labs. Patient was noted to have severely elevated potassium and have JOBY on OP labs and was sent to the ER. Repeat labs in the ER showed potassium of 8.2 creatinine of 3 point patient was on meloxicam, spironolactone and valsartan at home. Patient received medical management including calcium insulin albuterol and neb and bicarb as well as Lasix in the ED. Awaiting repeat labs. Patient is being transferred to the intensive care unit. Review of Systems Narrative: Other review of systems negative. Medications/Allergies Home Medications Medication Instructions Recorded Confirmed Last Taken Type albuterol sulfate 90 mcg/actuation 2 puff inhalation Q6H PRN 09/27/19 07/14/23 Unknown History aerosol inhaler (Ventolin HFA) Shortness Of Breath alprazolam 0.25 mg tablet 0.25 - 0.5 mg PO DAILY 09/27/19 07/14/23 07/13/23 History calcium carbonate 500 mg-vitamin 1 tab PO DAILY 09/27/19 07/14/23 07/13/23 History D3 5 mcg (200 unit) tablet (Calcium 500 + D) duloxetine 60 mg capsule,delayed 60 mg PO DAILY 09/27/19 07/14/23 07/13/23 History release (Cymbalta) omeprazole 20 mg capsule,delayed 20 mg PO BID 09/27/19 07/14/23 07/13/23 History release pramipexole 0.25 mg tablet 0.125 mg PO DAILY 09/27/19 07/14/23 07/13/23 History tizanidine 4 mg capsule 2 - 8 mg PO TID PRN MUSCLE SPASMS 09/27/19 07/14/23 Unknown History levothyroxine 150 mcg capsule 175 mcg PO DAILY 10/06/22 07/14/23 07/13/23 History loratadine 10 mg tablet (Allergy 10 mg PO DAILY PRN ALLERGIES 10/06/22 07/14/23 Unknown History Relief (loratadine)) spironolactone 100 mg tablet 100 mg PO DAILY 10/06/22 07/14/23 07/13/23 History valsartan 320 mg tablet 320 mg PO DAILY 10/06/22 07/14/23 07/13/23 History carvedilol 25 mg tablet 25 mg PO BID 07/14/23 07/14/23 07/13/23 History doxycycline hyclate 100 mg tablet 100 mg PO BID 07/14/23 07/14/23 Unknown History prednisone 20 mg tablet 20 mg PO DAILY 07/14/23 07/14/23 Unknown History Allergies Allergy/AdvReac Type Severity Reaction Status Date / Time acetaminophen [From Percocet] Allergy ALGY-Rash Verified 06/10/22 12:47 oxycodone [From Percocet] Allergy ALGY-Rash Verified 06/10/22 12:47 Current Medications Generic Name Dose Route Start Last Admin Trade Name Freq PRN Reason Stop Dose Admin Albuterol Sulfate 2.5 mg 07/13/23 19:45 07/13/23 21:45 Albuterol 2.5 Mg/3 Ml Neb INHALATION Not Given Q20M SUDHA Sodium Bicarbonate 150 meq/ 1,150 mls @ 100 mls/hr 07/13/23 20:30 07/13/23 20:44 Dextrose IV 100 mls/hr .[id number] SUDHA Administration PFSH Acute PFSH: Medical History Psoriasis GERD (gastroesophageal reflux disease) Fibromyalgia STAN (obstructive sleep apnea) RLS (restless legs syndrome) Hypothyroidism Hypertension Surgical History S/P laminectomy H/O colonoscopy 2011 H/O lateral meniscus repair of right knee H/O lateral meniscus repair of left knee H/O tubal ligation Family History Brother Cancer renal Hypertension Mother Hypertension Stroke Hypothyroidism Sister Hypertension Thyroid disease x4 Social History Smoking and tobacco/nicotine status: never used tobacco/nicotine Substance/Drug Use: never Vitals/I&O/Wt Last Vital Signs Temp 97.6 F 07/13/23 21:24 Pulse 77 07/13/23 21:24 Resp 16 07/13/23 21:24 BP 142/69 07/13/23 21:24 Pulse Ox 100 07/13/23 21:24 O2 Del Method Room Air 07/13/23 20:47 Weight last 48 hrs Weight 115.666 kg Physical Exam Narrative: Patient is awake alert no distress, on room air HEENT S1-S2 regular rate and rhythm per report Lungs clear per report and no edema Urinary Catheter Management: Palm: Cath Placed During This Visit: yes Urinary Catheter Date of Insertion: 07/13/23 Urinary Catheter Time of Insertion: 20:01 Data 07/14/23 04:34 07/14/23 04:34 A&P Assessment and plan (1) JOBY (acute kidney injury): 1. Acute on chronic kidney disease: Baseline creatinine in the mid 1 range creatinine is up to 2.2 on presentation , likely some JOBY component in the setting of recent diarrhea versus progression of CKD. Creatinine is stable currently at 1.9. Recommend outpatient follow-up with nephrology, avoid nephrotoxins -Avoid BARRY ARB, spironolactone and NSAIDs 2. Hyperkalemia: Potassium more than 8 on presentation, improved to 5.2 currently, avoid meds as above and low potassium diet 3. History of hypertension: Pressure controlled (2) Hyperkalemia: Coding [facility] (acute kidney injury) N17.9 Hyperkalemia E87.5
[2023-07-13] MEDS: heparin 5,000 unit/mL INJ 1 mL 5000 UNIT SUBCUT (22:30)
[2023-07-13] MEDS: amlodipine 10 mg Tablet PO (22:31)
[2023-07-13 22:33] LABS: Anion Gap 19.3 (5-19); Blood Urea Nitrogen 38 mg/dL (8-23); Calcium 9.7 mg/dL (8.5-10.5); Carbon Dioxide 20 mmol/L (22-29); Chloride 106 mmol/L (98-107); Creatinine Clr Calc Pharmacy 35.8318; Glucose 138 mg/dL (65-115); Osmolality Calculated 299 mOsm/kg (285-295); Potassium 6.3 mmol/L (3.5-5.1); Sodium 139 mmol/L (136-145)
[2023-07-14] VITALS (29 sets, daily range): BP systolic 114–154; BP diastolic 54–78; PULSE 61–159; RESP 12–31; TEMP 36.4–36.8; O2SAT 92–100; BMI 38.2
[2023-07-14 02:41] LABS: Blood Urea Nitrogen 39 mg/dL (8-23); Calcium 9.6 mg/dL (8.5-10.5); Carbon Dioxide 25 mmol/L (22-29); Chloride 103 mmol/L (98-107); Creatinine Clr Calc Pharmacy 35.8318; Glucose 132 mg/dL (65-115); Osmolality Calculated 301 mOsm/kg (285-295); Sodium 140 mmol/L (136-145)
[2023-07-14 05:00] LABS: Basophils % 0.1 %; Eosinophils # 0.1 10^3/uL (0.0-0.8); Eosinophils % 0.6 %; Hematocrit 33.5 % (36-47); Lymphocytes % 12.8 %; Mean Corpuscular HGB Conc 33.1 g/dL (30-55); Mean Corpuscular Hemoglobin 26.4 pg (27-33); Mean Corpuscular Volume 79.8 fl (85-98); Mean Platelet Volume 10.2 fL (7.4-10.4); Monocytes # 0.7 10^3/uL (0.2-0.9); Monocytes % 8.3 %; Neutrophils % 77.8 %; Nucleated Red Blood Cells % 0 %; Platelet Count 277 10^3/cmm (157-399); Red Cell Distribution Width 14.6 % (12.1-15.1)
[2023-07-14 05:29] LABS: Anion Gap 17.2 (5-19); Blood Urea Nitrogen 36 mg/dL (8-23); Calcium 9.4 mg/dL (8.5-10.5); Carbon Dioxide 26 mmol/L (22-29); Chloride 101 mmol/L (98-107); Creatinine Clr Calc Pharmacy 35.4715; Glucose 118 mg/dL (65-115); Magnesium 1.2 mg/dL (1.7-2.3); Osmolality Calculated 297 mOsm/kg (285-295); Phosphorus 4.1 mg/dL (2.5-4.5); Potassium 5.2 mmol/L (3.5-5.1); Sodium 139 mmol/L (136-145)
--- NOTE | 2023-07-14 08:54 | PC.NURSE ---
IVF discontinued per verbal order from DR Kumari.
--- NOTE | 2023-07-14 09:22 | PM.DCS ---
Discharge Providers Date of Admission: 07/13/23 20:21 Date of Discharge: July 14, 2023 Attending Provider at Admission: Nilson Kumari MD Attending Provider at Discharge: Nilson Kumari MD Primary Care Provider: Cliff Fung DO Diagnoses at Discharge Discharge Diagnosis (1) Hypertension: Status: Acute (2) Hypothyroidism: Status: Acute (3) STAN (obstructive sleep apnea): Status: Acute (4) Hyperkalemia: Status: Acute Reason for Visit Reason for Visit: sent by high sánchez Fung Hospital Course Hospital Course 71-year-old female who presented to hospital for abnormal labs, she was diagnosed with potassium of 8, her sample was hemolyzed she was on meloxicam Voltaren and spironolactone. Her empath regimen was changed she was given hyperkalemia treatment cocktail which improved her potassium. Patient did not experience any EKG changes chest pain shortness of breath or hemodynamic instability. Patient was resumed diarrhea that explain her low magnesium which was replenished. Patient will go home with Coreg amlodipine and hydralazine for blood pressure and BMP after 3 to 4 days with follow-up appointment with research staff member outpatient. Nephrology was consulted for her hyperkalemia. Patient was taking doxycycline for her sore throat she has been afebrile no leukocytosis Physical Exam Narrative: Pleasant cooperative Eating breakfast He stated Nonfocal neuroexam Urinary Catheter Management: Palm: Cath Placed During This Visit: yes Reason for Continuing Indwelling Catheter: Accurate Measurement of Urinary Output in Critically Ill Patients Urinary Catheter Date of Insertion: 07/13/23 Urinary Catheter Time of Insertion: 20:01 Discharge Data Studies Completed and Pending Laboratory Results WBC 8.10 10^3/uL (3.29-11.43) 07/14/23 04:34 RBC 4.20 10^6/uL (3.85-5.65) 07/14/23 04:34 Hgb 11.10 g/dL (11.27-16.99) L 07/14/23 04:34 Hct 33.5 % (36-47) L 07/14/23 04:34 MCV 79.8 fl (85-98) L 07/14/23 04:34 MCH 26.4 pg (27-33) L 07/14/23 04:34 MCHC 33.1 g/dL (30-55) 07/14/23 04:34 RDW 14.6 % (12.1-15.1) 07/14/23 04:34 Plt Count 277 10^3/cmm (157-399) 07/14/23 04:34 MPV 10.2 fL (7.4-10.4) 07/14/23 04:34 Neut % (Auto) 77.8 % 07/14/23 04:34 Lymph % (Auto) 12.8 % 07/14/23 04:34 [place] % (Auto) 8.3 % 07/14/23 04:34 Eos % (Auto) 0.6 % 07/14/23 04:34 Baso % (Auto) 0.1 % 07/14/23 04:34 Neut # (Auto) 6.30 10^3/uL (1.8-7.7) 07/14/23 04:34 Lymph # (Auto) 1.0 10^3/uL (0.8-4.8) 07/14/23 04:34 [place] # (Auto) 0.7 10^3/uL (0.2-0.9) 07/14/23 04:34 Eos # (Auto) 0.1 10^3/uL (0.0-0.8) 07/14/23 04:34 Baso # (Auto) 0.0 10^3/uL (0.0-0.1) 07/14/23 04:34 Nucleated RBC % (auto) 0 % 07/14/23 04:34 Nucleated RBCs # 0.0 /100WBC 07/14/23 04:34 Sodium 139 mmol/L (136-145) 07/14/23 04:34 Potassium 5.2 mmol/L (3.5-5.1) H 07/14/23 04:34 Chloride 101 mmol/L (98-107) 07/14/23 04:34 Carbon Dioxide 26 mmol/L (22-29) 07/14/23 04:34 Anion Gap 17.2 (5-19) 07/14/23 04:34 BUN 36 mg/dL (8-23) H 07/14/23 04:34 Creatinine 1.9 mg/dL (0.5-0.9) H 07/14/23 04:34 GFR Calculation Not Reportable 07/14/23 04:34 Glucose 118 mg/dL (65-115) H 07/14/23 04:34 Calculated Osmolality 297 mOsm/kg (285-295) H 07/14/23 04:34 Calcium 9.4 mg/dL (8.5-10.5) 07/14/23 04:34 Phosphorus 4.1 mg/dL (2.5-4.5) 07/14/23 04:34 Magnesium 1.2 mg/dL (1.7-2.3) L 07/14/23 04:34 Total Bilirubin 0.2 mg/dL (0.15-1.2) 07/13/23 16:48 AST 21 U/L (0-32) 07/13/23 16:48 ALT 23 U/L (0-33) 07/13/23 16:48 Alkaline Phosphatase 126 U/L (35-105) H 07/13/23 16:48 Total Protein 7.6 g/dL (6.6-8.7) 07/13/23 16:48 Albumin 4.3 g/dL (3.5-5.2) 07/13/23 16:48 Globulin 3.3 g/dL (1.3-4.6) 07/13/23 16:48 Vitals Last Vital Signs Temp 97.6 F 07/14/23 04:45 Pulse 62 07/14/23 05:55 Resp 19 H 07/14/23 05:00 BP 137/72 07/14/23 05:00 Pulse Ox 97 07/14/23 05:00 O2 Del Method Room Air 07/14/23 05:00 Discharge Plan Discharge Patient Disposition: Home Condition: Stable Prescriptions: New hydralazine 25 mg Tablet 25 mg PO BID Qty: 60 0RF Continued albuterol sulfate [Ventolin HFA] 90 mcg/actuation HFA aerosol inhaler 2 puff INHALATION Q6H PRN (Reason: Shortness Of Breath) omeprazole 20 mg capsule,delayed release(DR/EC) 20 mg PO BID alprazolam 0.25 mg tablet 0.25 - 0.5 mg PO DAILY pramipexole 0.25 mg tablet 0.125 mg PO DAILY tizanidine 4 mg capsule 2 - 8 mg PO TID PRN (Reason: MUSCLE SPASMS) duloxetine [Cymbalta] 60 mg capsule,delayed release(DR/EC) 60 mg PO DAILY calcium carbonate-vitamin D3 [Calcium 500 + D] 500 mg(1,250mg) -200 unit tablet 1 tab PO DAILY levothyroxine 150 mcg capsule 175 mcg PO DAILY loratadine [Allergy Relief (loratadine)] 10 mg tablet 10 mg PO DAILY PRN (Reason: ALLERGIES) carvedilol 25 mg tablet 25 mg PO BID prednisone 20 mg tablet 20 mg PO DAILY doxycycline hyclate 100 mg tablet 100 mg PO BID Discontinued valsartan 320 mg tablet 320 mg PO DAILY spironolactone 100 mg tablet 100 mg PO DAILY Discharge Orders: Discharge Order (Routine); Ordered 07/14/23 Ordered By: Nilson Kumari Referrals: Cliff Fung DO [Primary Care Provider] - Patient Instructions: Opioid Safety Discharge Attestations Time Spent in Discharge Care*: greater than 30 min Quality Metrics Clinical Quality Measures [ No reported AMI, CVA or VTE this stay] Coding Level of Care Code Acute Code for Chg Fwd Diagnoses Hypertension I10 Hypothyroidism E03.9 STAN (obstructive sleep apnea) G47.33 Hyperkalemia E87.5
[2023-07-14] MEDS: carvedilol 12.5 mg Tablet PO (09:29)
[2023-07-14] MEDS: doxycycline 100 mg Tablet PO (09:29)
[2023-07-14] MEDS: sennosides-docusate Tablet 1 TAB PO (09:29)
[2023-07-14] MEDS: levothyroxine 175 mcg Tablet PO (09:30)
[2023-07-14] MEDS: hyDRALAzine 25 mg Tablet PO (09:30)
[2023-07-14] MEDS: ALPRAZolam 0.5 mg Tablet 0.25 MG PO (09:30)
[2023-07-14] MEDS: heparin 5,000 unit/mL INJ 1 mL 5000 UNIT SUBCUT (09:30)
--- NOTE | 2023-07-14 09:32 | PM.PN ---
Subjective Subjective: doing well Medications: Reviewed: Yes Vitals/I&O/Wt Last Vital Signs Temp 97.6 F 07/14/23 04:45 Pulse 62 07/14/23 05:55 Resp 19 H 07/14/23 05:00 BP 137/72 07/14/23 05:00 Pulse Ox 97 07/14/23 05:00 O2 Del Method Room Air 07/14/23 05:00 07/13/23 07/14/23 07/14/23 22:59 06:59 14:59 Intake Total 550 / 550 200 / 750 1150 / 1150 Output Total 1400 / 1400 1150 / 2550 Balance -850 / -850 -950 / -1800 1150 / 1150 Weight last 48 hrs Weight 114.033 kg Weight 116.165 kg Weight 115.666 kg Physical Exam Narrative: Patient is awake alert no distress, on room air HEENT S1-S2 regular rate and rhythm per report Lungs clear per report and no edema Urinary Catheter Management: Palm: Cath Placed During This Visit: yes Reason for Continuing Indwelling Catheter: Accurate Measurement of Urinary Output in Critically Ill Patients Urinary Catheter Date of Insertion: 07/13/23 Urinary Catheter Time of Insertion: 20:01 Data 07/14/23 04:34 07/14/23 04:34 A&P Assessment and plan (1) JOBY (acute kidney injury): 1. Acute on chronic kidney disease: Baseline creatinine in the mid 1 range creatinine is up to 2.2 on presentation , likely some JOBY component in the setting of recent diarrhea versus progression of CKD. Creatinine is stable currently at 1.9. Recommend outpatient follow-up with nephrology, avoid nephrotoxins -Avoid BARRY ARB, spironolactone and NSAIDs 2. Hyperkalemia: Potassium more than 8 on presentation, improved to 5.2 currently, avoid meds as above and low potassium diet 3. History of hypertension: Pressure controlled (2) Hyperkalemia: Attestations Medical Necessity Statement*: per vannessa Coding Level of Care Code Acute Code for [facility] Diagnoses JOBY (acute kidney injury) N17.9 Hyperkalemia E87.5
--- NOTE | 2023-07-14 11:27 | PC.NURSE ---
Both AC IVs removed intact. Palm removed intact. Pt to get dress for discharge
--- NOTE | 2023-07-14 12:30 | PC.NURSE ---
Discharge: Pt stated Amlodipine makes her dizzy and weak, so much so it makes her fall. Dr Kumari notified. He ok'd her not taking Amlodipine upon discharge. Pt instructed to take her BP every morning and bring that list with her to her Dr [email or web address] Pt and stated they did that already. Care noed for hydralazine, amlodipine, chronic and acute kidney provided. PT and wished to review when at home. Follow up Physician appts and BMP discussed. Pt to POV via W/C
== END 2023-07-14 12:30 | disposition home or self-care (01) ==
LOC: ER 19:31 → ICU 20:21
PROVIDERS: Emergency Medicine; Hospitalist; Admitting Provider Internal Medicine; Emergency Provider Physician Assistant; PCP Electrodiagnostic Medicine; Visit Provider Internal Medicine
DX: E87.5 Hyperkalemia (principal); I10 Essential (primary) hypertension; E03.9 Hypothyroidism, unspecified; G47.33 Obstructive sleep apnea (adult) (pediatric); N17.9 Acute kidney failure, unspecified; G25.81 Restless legs syndrome; N18.9 Chronic kidney disease, unspecified; R19.7 Diarrhea, unspecified
CPT/HCPCS: 36415; 51702; 80048; 80053; 83735; 84100; 84132; 85025; 93005; 94640; 96372; 96374; 96375; 96376; 99285; G0378; J0612; J1644; J1815; J1940; J7060; J7070; J7613; Q3014

== ENCOUNTER 2023-07-18 08:40 | Outpatient (CLI) | payer MEDICARE, SELFPAY ==
[2023-07-18 09:46] LABS: Anion Gap 13.8 (5-19); Blood Urea Nitrogen 36 mg/dL (8-23); Calcium 7.9 mg/dL (8.5-10.5); Carbon Dioxide 27 mmol/L (22-29); Chloride 105 mmol/L (98-107); Glucose 94 mg/dL (65-115); Osmolality Calculated 300 mOsm/kg (285-295); Potassium 4.8 mmol/L (3.5-5.1); Sodium 141 mmol/L (136-145)
== END 2023-07-18 08:41 | disposition home or self-care (01) ==
LOC: LAB 08:43
PROVIDERS: Internal Medicine; PCP Electrodiagnostic Medicine; Visit Provider Electrodiagnostic Medicine
DX: N17.9 Acute kidney failure, unspecified (principal); E87.5 Hyperkalemia
CPT/HCPCS: 36415; 80048

== ENCOUNTER 2024-03-15 12:43 | Outpatient (CLI) | payer MEDICARE, SELFPAY ==
--- NOTE | 2024-03-15 12:55 | USCV_ITS ---
Cheri Nj Age: 74 Gender: F : 1950 Exam Date: 03/15/2024 13:21 Ordering Phys: Cliff Fung DO Technologist: MAUREEN [place] [facility] [place]: [place] BP: 165 / 80 HR: 72 Rhythm: Sinus Technical Quality: Adequate MEASUREMENTS (Male / Female) Normal Values 2D ECHO LV Diastolic Diameter PLAX 4.2 cm 4.2 - 5.9 / 3.9 - 5.3 cm IVS Diastolic Thickness 1.4 cm 0.6 - 1.0 / 0.6 - 0.9 cm IVS Systolic Thickness 2.3 cm LVPW Diastolic Thickness 1.6 cm 0.6 - 1.0 / 0.6 - 0.9 cm LVPW Systolic Thickness 2.8 cm LVOT Diameter 2.0 cm LV Ejection Fraction 2D Teich 49.5 % LV Ejection Fraction MOD 4C 56.5 % LV Ejection Fraction MOD 2C 52.5 % LV Ejection Fraction 2C AL 54.0 % LA Diameter 3.6 cm RA Systolic Volume 4C AL 28.4 ml RA Systolic Volume 4C MOD 27.4 ml LA Sys Volume AL 36.8 cm cubed LA Sys Volume Index AL 15.6 cm cubed/m squared IVC Diameter 1.5 cm M-MODE LA Ao Ratio MM 1.1 AV Cusp Separation MM 1.8 cm DOPPLER AV Peak Velocity 170.0 cm/s LVOT Peak Velocity 118.0 cm/s AV Area Cont Eq vti 2.1 cm squared AV Area Cont Eq pk 2.1 cm squared MV Peak Velocity 129.0 cm/s MV Area PHT 2.5 cm squared Mitral E to A Ratio 0.6 TR Peak Velocity 164.0 cm/s TR Peak Gradient 10.8 mmHg TR Mean Velocity 139.0 cm/s TR Mean Gradient 8.1 mmHg TR Velocity Time Integral 47.2 cm TV Peak E Velocity 44.0 cm/s PV Peak Velocity 109.0 cm/s RV Ejection Time 0.3 s FINDINGS Left Ventricle Normal LV size ejection fraction of 55%. Mild to moderate concentric left renal hypertrophy.Grade I/IV diastolic dysfunction (abnormal relaxation filling pattern), normal to mildly elevated filling pressures. Right Ventricle The right ventricle is normal in size and function. Right Atrium The right atrium is normal in size. Left Atrium The left atrium is normal in size. Mitral Valve No gross abnormalities noted Aortic Valve Mild aortic valve regurgitation. Tricuspid Valve Trace tricuspid valve regurgitation. Pulmonic Valve Pulmonic valve not well visualized. Pericardium Normal pericardium without effusion. Aorta Normal ascending aorta dimension. IVC Normal inferior vena cava. CONCLUSIONS Normal LV size ejection fraction of 55%. Mild to moderate concentric left renal hypertrophy.Grade I/IV diastolic dysfunction (abnormal relaxation filling pattern), normal to mildly elevated filling pressures. Mild aortic valve regurgitation. Trace tricuspid valve regurgitation. There is no pericardial effusion. There are no intracardiac masses. Compared to the study from 10/18/2022, there may not be a significant change Dr Michelle Garcia MD FACC (Electronically Signed) Final Date: 15 March 2024 22:52 S
== END 2024-03-15 12:44 | disposition home or self-care (01) ==
PROVIDERS: PCP Electrodiagnostic Medicine; Visit Provider Electrodiagnostic Medicine
DX: R06.09 Other forms of dyspnea (principal); I35.1 Nonrheumatic aortic (valve) insufficiency; I51.7 Cardiomegaly
CPT/HCPCS: 93306

== ENCOUNTER 2024-03-21 08:39 | Outpatient (CLI) | payer MEDICARE, SELFPAY ==
--- NOTE | 2024-03-21 08:42 | MM_ITS ---
WS: [id number] Bilateral screening 3D tomosynthesis digital mammogram, 03/21/2024 8:43 AM Clinical Data: SCREENING Comparison: 07/01/2021, 05/12/2021, 04/21/2021. Findings: No spiculated masses or clustered calcifications are seen. There are no secondary signs of carcinoma . There is a biopsy clip in the medial aspect of the left breast. MM/MM scr BI tomosynthesis [id number] Impression: Negative bilateral mammogram unchanged. Recommend annual screening mammograms. BIRADS: 1 - Negative. FOLLOW UP: 1 Year Follow-up DENSITY: There are scattered areas of fibroglandular density. The CAD billing checker was used
== END 2024-03-21 08:40 | disposition home or self-care (01) ==
PROVIDERS: PCP Electrodiagnostic Medicine; Visit Provider Electrodiagnostic Medicine
DX: Z12.31 Encounter for screening mammogram for malignant neoplasm of breast (principal); R92.323 Mammographic fibroglandular density, bilateral breasts
CPT/HCPCS: 77063; 77067